=== PATIENT | female | born 1960 | race Asian ===

== ENCOUNTER 2016-11-25 08:56 | Day surgery (SDC) | payer MEDICAID ==
[2016-11-24 12:33] VITALS: BMI 22.0
[~2016-11-25] VITALS: Ht 167.6 cm; Wt 60.6 kg
[2016-11-25] VITALS (16 sets, daily range): BP systolic 108–154; BP diastolic 58–81; PULSE 70–87; RESP 11–20; Ht 167.6 cm; Wt 60.6 kg
[~2016-11-25 08:56] MED LIST: DIPHENHYDRAMINE 50 MG INJ IV PRN; FENTAnyl 50 MCG/ML VIAL IV PRN; HYDROmorphONE (0.2 MG/ML) 10ML SYG IV PRN; MEPERIDINE 25 MG INJ IV PRN; METOCLOPRAMIDE 10 MG INJ IV PRN; ONDANSETRON 4 MG INJ IV PRN; OXYCODONE/ACETAMINOPHEN (5/325) TAB PO PRN; PROCHLORPERAZINE 10 MG INJ IV PRN
[2016-11-25] MEDS ORDERED: AMLO5TAB4 PO (09:55)
[2016-11-25] MEDS ORDERED: METO-429 PO (09:55)
[2016-11-25] MEDS ORDERED: SOD CHLORIDE 0.9% 1,000 ML IV ONE (10:00)
[2016-11-25] MEDS ORDERED: CEFAZOLIN 2 GM/50 ML (PMX) 50 ML IVPB ONE (10:00)
--- NOTE | 2016-11-25 10:16 | RADRPT ---
PROCEDURE: XR Chest 1 View. CLINICAL INDICATION: Abnormal breath sounds, preop. TECHNIQUE: AP view of the chest were obtained. COMPARISON: None. FINDINGS: The cardiomediastinal silhouette is within normal limits. The lungs are hyperexpanded. No consolidat ions are identified. No pneumothorax is seen. Osseous structures are intact. IMPRESSION: Hyperexpanded, clear lungs. RPTAT: AA .Tejinder Alonzo MD, MD Date Time Electronically viewed and signed by .Tejinder Alonzo MD, MD on 11/25/2016 10:16 .P/
[2016-11-25] MEDS ORDERED: FENTAnyl 50 MCG/ML VIAL ONE ×2 (12:15→12:47)
[2016-11-25] MEDS ORDERED: MIDAZOLAM 1 MG/ML 2 ML INJ ONE (12:15)
[2016-11-25] MEDS ORDERED: LIDOCAINE 2% (SDV) 5 ML INJ ONE (12:15)
[2016-11-25] MEDS ORDERED: PROPOFOL 20 ML ONE (12:15)
[2016-11-25 12:24] LABS: BASOPHILS % 0.1 % (0.0-2.0); EOSINOPHILS # 0.1 10^3/ul (0.0-0.5); EOSINOPHILS % 2.4 % (0.0-7.0); HEMATOCRIT 36.7 % (37.0-47.0); HEMOGLOBIN 11.5 g/dl (12.0-16.0); LYMPHOCYTES # 1.8 10^3/ul (0.8-2.9); LYMPHOCYTES % 30.1 % (15.0-51.0); MEAN CORPUSCULAR HEMOGLOBIN 22.8 pg (29.0-33.0); MEAN CORPUSCULAR HGB CONC 31.4 g/dl (32.0-37.0); MEAN CORPUSCULAR VOLUME 72.6 fl (82.0-101.0); MONOCYTE # 0.4 10^3/ul (0.3-0.9); MONOCYTES % 5.8 % (0.0-11.0); NEUTROPHIL # 3.7 10^3/ul (1.6-7.5); NEUTROPHILS % 61.6 % (39.0-77.0); PLATELET COUNT 213 10^3/UL (140-440); RED BLOOD COUNT 5.06 10^6/ul (4.20-5.40); RED CELL DISTRIBUTION WIDTH 15.1 % (11.5-14.5); UNCORRECTED WBC 6.1 10^3/ul (4.8-10.8); WHITE BLOOD COUNT 6.1 10^3/ul (4.8-10.8)
[2016-11-25] MEDS ORDERED: CEFAZOLIN 1 GM INJ ONE (12:24)
[2016-11-25 12:28] LABS: POTASSIUM 3.7 mmol/L (3.5-5.1)
[2016-11-25 12:29] LABS: CALCIUM 9.4 mg/dl (8.4-10.2); CREATININE 0.57 mg/dl (0.44-1.00)
[2016-11-25] MEDS ORDERED: ISOSULFAN BLUE 1% 5 ML INJ SC ONE (12:30)
[2016-11-25] MEDS ORDERED: METOCLOPRAMIDE 10 MG INJ ONE (12:30)
[2016-11-25] MEDS ORDERED: ONDANSETRON 4 MG INJ ONE (12:30)
[2016-11-25 12:36] LABS: CONDITION 1; LH ANALYZER COMMENTS 1
[2016-11-25 12:51] LABS: INR 0.94; PROTIME 12.6 Sec (12.2-14.2)
[2016-11-25 12:57] LABS: PARTIAL THROMBOPLASTIN TIME 40.8 Sec (25.0-35.0)
[2016-11-25] MEDS ORDERED: GLYCOPYRROLATE 0.4 MG INJ ONE (13:10)
[2016-11-25] MEDS ORDERED: EPHEDrine SULFATE 50 MG/5 ML SYG ONE (13:10)
[2016-11-25] MEDS ORDERED: LABETALOL HCL 20MG INJ IV PRN (13:30)
[2016-11-25] MEDS ORDERED: hydrALAzine 20 MG INJ IV PRN (13:30)
--- NOTE | 2016-11-25 13:37 | RADRPT ---
Vent Rate: 67 bpm RR Interval: 0 msec SC Interval: 148 msec QRS Duration: 78 msec QT Interval: 402 msec QTC Interval: 424 msec P-R-T [place]: 46 - 25 - 16 degrees Normal sinus rhythm Normal ECG Electronically Signed By: Vel Childress [id number]
[2016-11-25] MEDS ORDERED: KETOROLAC 30 MG INJ ONE (13:56)
--- NOTE | 2016-11-25 14:32 | OPR ---
DATE OF OPERATION: 11/25/2016 PREOPERATIVE DIAGNOSIS: Invasive cancer, left breast. POSTOPERATIVE DIAGNOSIS: Invasive cancer, left breast. PROCEDURE PERFORMED: Left partial mastectomy and axillary dissection utilizing sentinel lymph node technique. SURGEON: Toney Rivera MD VEST BASTER: Dr. Akins and Carlie Chand MD ANESTHESIA: General. ANESTHESIOLOGIST: Lee Ann Mitchell MD INDICATIONS FOR PROCEDURE: The patient is an unfortunate 56-year-old female who underwent surveilla nce mammography and was found to have a suspicious lesion greater than 2 cm in her left breast. Cor e biopsy confirmed an invasive cancer. She was not a candidate for neoadjuvant chemotherapy. She w as HER-2 negative. She was counseled as to the need for surgery. She consented and was scheduled f or surgery. DESCRIPTION OF PROCEDURE: The patient was brought to the operating theater, placed under general an esthesia. The left breast and axillary region was prepped and draped in the usual sterile fashion. Approximately 4 mL of 1% Lymphazurin blue dye was then injected peritumorally, the breast was gentl y massaged for approximately 12 minutes. Subsequently, a 3 cm incision was made in the left axillar y hairline. Subcutaneous tissue was dissected with cautery down through the clavipectoral fascia. A dye-stained lymphatic was traced and found to be going to a group of somewhat enlarged lymph nodes . Therefore, Dr. Rivera made decision to resect the sentinel node and additional lymph nodes. With blunt dissection along the chest wall, the long thoracic nerve was identified and kept out of harm's way. More superiorly, the axillary vein and thoracodorsal neurovascular bundle were identified and kept out of harm's way. Node bearing tissue between the long thoracic nerve and thoracodorsal nerv e was meticulously harvested using LigaSure device and sent for intraoperative gross analysis perfor med by attending pathologist, Dr. Akins. He decided to defer to permanent. Therefore, Dr. Rivera i rritated the wound. Minimal bleeding was controlled with cautery. A #10 flat Rigo-Jones drain w as brought through the left midaxillary line, cut to size, laid within the axilla. It was secured i n place with a 2-0 nylon suture in the standard fashion. The skin incision was reapproximated with 4-0 Vicryl suture in a subcuticular fashion. Attention was then directed towards performing partial mastectomy. A periareolar incision was made from the 9 o'clock through the 12 o'clock to the 3 o'clock location. Subcutaneous tissue was dissec benji with cautery. The skin edges were elevated with skin hooks. Wide circumferential dissection of the tissue associated with the mass then took place. Specimen was elevated, transected, sent for g ross analysis. On gross analysis, however, a definite tumor was not found. Therefore, Dr. Rivera re turned to the room, reevaluated. There was additional firm tissue medially that was most likely rel ated to additional tumor. This tissue was resected using cautery. It was oriented and sent for per manent pathologic analysis. Final inspection revealed a small amount of additional tissue which was somewhat suspicious. It was resected and sent as the final medial margin. The wound was then irri gated. Minimal bleeding was controlled with cautery. The skin was reapproximated with a deep derma l layer of 4-0 Vicryl sutures, followed by final skin approximation with 5-0 PDS sutures in subcutic ular fashion. Benzoin and Steri-Strips were then applied to both incisions. The patient tolerated the procedure well. The estimated blood loss was 30 mL. There were no complications. The patient was transported in stable condition to the recovery room where a circumferential compression dressin g was applied. Dictated By: TONEY LEA/ADRIANA Conf#: [id number] DID#: [id number]
[2016-11-25] MEDS ORDERED: ACETAMINOPHEN 1000MG/100ML IV 100 ML IVPB PRN (15:00)
[2016-11-25] MEDS ORDERED: morphine 2 MG INJ IV PRN (15:00)
[2016-11-25] MEDS ORDERED: ONDANSETRON 4 MG INJ IV PRN (15:00)
[2016-11-25] MEDS: D5W-0.45 NACL + KCL 20 MEQ 1,000 ML IV SCH ×2 (17:35→23:18)
--- NOTE | 2016-11-25 18:19 | HP ---
DATE OF ADMISSION: 11/25/2016 CHIEF COMPLAINT AND HISTORY OF PRESENT ILLNESS: The patient is a 56-year-old female with history of hypertension who underwent surveillance mammography and was found to have suspicious lesion in the left breast. Subsequently, she underwent core biopsy which confirmed invasive cancer. The patient was not a candidate for neoadjuvant chemotherapy. She was HER2 negative. The patient was seen by Imtiaz Rivera as an outpatient, and she underwent left partial mastectomy and axillary dissection. The p atient postoperatively has significant chest wall pain, and therefore, the patient is being admitted for further evaluation and management. REVIEW OF SYSTEMS: The patient denied any history of headache, dizziness, syncope. No history of r ecent fever or chills. No history of abdominal pain. No history of vomiting or diarrhea. No histo ry of dysuria or hematuria. No history of focal weakness in the past. No history of cardiac diseas e other than hypertension. No history of diabetes. The rest of the review of systems is unremarkab le. PAST SURGICAL HISTORY: None. ALLERGIES: NONE. SOCIAL HISTORY: No smoking, no alcohol. FAMILY HISTORY: Noncontributory. PHYSICAL EXAMINATION: GENERAL: The patient is conscious, awake, alert, fairly oriented. VITAL SIGNS: Blood pressure 153/76, pulse 72, respiration 20, temperature 98.2. HEENT: Atraumatic, normocephalic. Conjunctivae and lids normal. Oropharynx clear. NECK: Supple. No mass, no thyromegaly. CHEST: Fairly clear. No use of accessory muscles. CARDIOVASCULAR: S1, S2 normal. No murmur, gallop, or rub. ABDOMEN: Soft, nondistended, nontender. No palpable mass. EXTREMITIES: No leg edema. Pedal pulses palpable. SKIN: Without acute rash or ulcer. NEUROLOGIC: The patient is awake, alert, oriented with no gross focal deficit. LABORATORY DATA: This morning, WBC 6.1, hemoglobin 11.5, platelets 213. Sodium 145, potassium 3.7, BUN 13, creatinine 0.5, glucose 96, calcium 9.4. MEDICATIONS PRIOR TO ADMISSION: The patient was on 1. Norvasc 5 mg b.i.d. 2. Metoprolol 50 b.i.d. IMPRESSION: 1. Left breast cancer status post left partial mastectomy and axillary dissection. 2. Hypertension. PLAN: The patient admitted on medical floor. The patient will be started on clear liquid diet [facility] will be advanced as tolerated. I will resume her antihypertensive medications. The patient will have SCD for DVT prophylaxis and will be given Tylenol, Percocet, and IV morphine for pain control, depending upon the severity of the pain. Plan of care discussed with the patient's daughter. Further recommendations depend on patient's hos pital course. Dictated By: SELMA AVILA/ADRIANA Conf#: [id number] DID#: [id number]
[2016-11-25] MEDS: AMLODIPINE 5 MG TAB PO SCH (21:00)
[2016-11-25] MEDS: METOPROLOL 50 MG TAB PO SCH (21:00)
[2016-11-26] MEDS: D5W-0.45 NACL + KCL 20 MEQ 1,000 ML IV SCH ×2 (07:00→14:35)
[2016-11-26 08:01] VITALS: BP 132/75; RESP 16
[2016-11-26] MEDS: AMLODIPINE 5 MG TAB PO SCH (08:53)
[2016-11-26] MEDS: METOPROLOL 50 MG TAB PO SCH (08:53)
--- NOTE | 2016-11-26 09:59 | PN ---
Date/Time of Note Date/Time of Note DATE: 11/26/16 TIME: 09:58 Assessment/Plan VTE Prophylaxis VTE Prophylaxis Intervention: other Lines/Catheters IV Catheter Type (from Nrsg): Peripheral IV Assessment/Plan Chief Complaint/Hosp Course 1) breast cancer - s/p mastectomy - discharge per surgery Problems: Subjective 24 Hr Interval Summary Free Text/Dictation Patient currently denies any pain Exam/Review of Systems Vital Signs Vitals Vital Signs Date Time Temp Pulse Resp B/P Pulse Ox O2 Delivery O2 Flow Rate FiO2 11/26/16 08:01 98.6 90 16 132/75 96 11/25/16 17:45 Room Air 11/25/16 14:50 6.0 Intake and Output 11/25/16 11/25/16 11/26/16 15:00 23:00 07:00 Intake Total 850 ml 500 ml Output Total 30 ml 10 ml 905 ml Balance 820 ml -10 ml -405 ml Exam Constitutional: well developed Head: atraumatic, normocephalic Neck: supple Respiratory: clear to auscultation Cardiovascular: regular rate and rhythm Gastrointestinal: non-tender, soft Results Result Diagram: 11/25/1640 11/25/1640 Medications Medications Current Medications Ondansetron HCl 4 mg 4 mg Q6H PRN IV NAUSEA AND/OR VOMITING; Start 11/25/16 at 15:00 Potassium Chloride/Dextrose/ Sod Cl (D5-1/2ns + KCl 20 Meq) 1,000 ml @ 125 mls/ hr Q8H IV Last administered on 11/26/16 07:00; Admin Dose 125 MLS/HR; Start at 14:35 Morphine Sulfate 2 mg 2 mg Q1H PRN IV PAIN; Start 11/25/16 at 15:00 Acetaminophen (Ofirmev 1000mg/ 100ml Iv) 100 ml @ 400 mls/hr Q6H PRN IVPB PAIN Last administered on 11/25/16 18:21; Admin Dose 400 MLS/HR; Start at 15:00 Amlodipine Besylate (Norvasc) 5 mg BID PO Last administered on 11/26/16 08:53 ; Admin Dose 5 MG; Start 11/25/16 at 21:00 Metoprolol Tartrate (Lopressor) 50 mg BID PO Last administered on 11/26/16 08: 53; Admin Dose 50 MG; Start 11/25/16 at 21:00 CHARBEL DOMINGUEZ Nov 26, 2016 09:59
[2016-11-26] MEDS ORDERED: HYDR-906 PO (14:34)
--- NOTE | 2016-11-26 14:38 | PN ---
DATE: 11/26/2016 Postoperative day #1. SUBJECTIVE: She does not have any complaints. OBJECTIVE: VITAL SIGNS: Stable. 98.6, 90, 16,132/75, 96% on room air. The Rigo-Jones drain has been draining serosanguineous fluid, 20 mL for 24 hours. ABDOMEN: Soft. HEART: Regular rhythm. EXTREMITIES: There is no calf tenderness. ASSESSMENT: A 56-year-old patient, status post partial mastectomy with sentinel lymph node dissection on the left side. Today is postop day #1. The patient is stable. The left arm and upper extremity has full range of motion. PLAN: The patient can go home today and follow up by Dr. Rivera in his office this coming Monday. Dictated By: HAI GREEN MD PS/NTS Conf#: [id number] DID#: [id number] MTDD
== END 2016-11-26 16:25 | disposition home or self-care (01) ==
LOC: SDS 08:56 → MS1 16:20 → SDS 11-26 16:25
PROVIDERS: ATTEND Surgery Surgical Oncology
DX: D05.12 Intraductal carcinoma in situ of left breast (principal); I25.10 Atherosclerotic heart disease of native coronary artery without angina pectoris; I10 Essential (primary) hypertension
CPT/HCPCS: 19301; 38500; 38792; 71010; 80048; 85025; 85610; 85730; 88307; 93005; J0131; J0360; J0690; J1885; J2250; J2270; J2405; J2765; J3010; J3480; Z7512; Z7610; Q9968

== ENCOUNTER 2016-12-16 08:44 | Day surgery (SDC) | payer MEDICAID ==
[~2016-12-16] VITALS: Ht 165.1 cm; Wt 61.3 kg
[2016-12-16] VITALS (9 sets, daily range): BP systolic 112–187; BP diastolic 66–92; PULSE 64–82; RESP 15–20; Ht 165.1 cm; Wt 61.3 kg
[~2016-12-16 08:44] MED LIST changes: +AMLO5TAB4 PO; +CEFAZOLIN 2 GM/50 ML (PMX) 50 ML IVPB SCH; -DIPHENHYDRAMINE 50 MG INJ IV PRN; -FENTAnyl 50 MCG/ML VIAL IV PRN; +HYDR-906 PO; -HYDROmorphONE (0.2 MG/ML) 10ML SYG IV PRN; -MEPERIDINE 25 MG INJ IV PRN; +METO-429 PO; -METOCLOPRAMIDE 10 MG INJ IV PRN; -ONDANSETRON 4 MG INJ IV PRN; -OXYCODONE/ACETAMINOPHEN (5/325) TAB PO PRN; -PROCHLORPERAZINE 10 MG INJ IV PRN; +SOD CHLORIDE 0.9% 1,000 ML IV SCH
[2016-12-16 10:39] LABS: ADD SCAN DIFF NO
[2016-12-16 10:47] LABS: BASOPHILS % 0.5 % (0.0-2.0); EOSINOPHILS # 0.1 10^3/ul (0.0-0.5); HEMATOCRIT 33.8 % (37.0-47.0); HEMOGLOBIN 10.4 g/dl (12.0-16.0); LYMPHOCYTES # 1.7 10^3/ul (0.8-2.9); LYMPHOCYTES % 38.1 % (15.0-51.0); MEAN CORPUSCULAR HEMOGLOBIN 22.4 pg (29.0-33.0); MEAN CORPUSCULAR HGB CONC 30.8 g/dl (32.0-37.0); MEAN CORPUSCULAR VOLUME 72.7 fl (82.0-101.0); MONOCYTE # 0.4 10^3/ul (0.3-0.9); MONOCYTES % 9.1 % (0.0-11.0); NEUTROPHIL # 2.2 10^3/ul (1.6-7.5); NEUTROPHILS % 49.1 % (39.0-77.0); PLATELET COUNT 239 10^3/UL (140-415); RED BLOOD COUNT 4.65 10^6/ul (4.20-5.40); RED CELL DISTRIBUTION WIDTH 15.4 % (11.5-14.5); WHITE BLOOD COUNT 4.4 10^3/ul (4.8-10.8)
[2016-12-16] MEDS ORDERED: NITR0.4T6 SL (10:47)
[2016-12-16] MEDS ORDERED: ATOR40TA68 PO (10:47)
[2016-12-16] MEDS ORDERED: ASPI81TA3 PO (10:47)
[2016-12-16 10:55] LABS: INR 0.96; PROTIME 12.8 Sec (12.2-14.2)
[2016-12-16 11:03] LABS: CALCIUM 9.3 mg/dl (8.4-10.2); CREATININE 0.58 mg/dl (0.44-1.00); POTASSIUM 3.7 mmol/L (3.5-5.1)
[2016-12-16] MEDS ORDERED: PROPOFOL 20 ML ONE (11:12)
[2016-12-16] MEDS ORDERED: LIDOCAINE 2% (SDV) 5 ML INJ ONE (11:12)
[2016-12-16] MEDS ORDERED: FENTAnyl 50 MCG/ML VIAL ONE (11:12)
[2016-12-16] MEDS ORDERED: CEFAZOLIN 1 GM INJ ONE (11:12)
[2016-12-16] MEDS ORDERED: MIDAZOLAM 1 MG/ML 2 ML INJ ONE (11:12)
[2016-12-16] MEDS ORDERED: METOPROLOL 5 MG INJ ONE (11:56)
[2016-12-16 11:59] LABS: PARTIAL THROMBOPLASTIN TIME 37.5 Sec (25.0-35.0)
[2016-12-16] MEDS ORDERED: ONDANSETRON 4 MG INJ ONE (12:00)
[2016-12-16] MEDS ORDERED: METOCLOPRAMIDE 10 MG INJ ONE (12:00)
[2016-12-16] MEDS ORDERED: DEXAMETHASONE 4 MG/ML 1 ML INJ ONE (12:00)
[2016-12-16] MEDS ORDERED: HYDROmorphONE 2 MG/ML SYG ONE (12:20)
[2016-12-16] MEDS ORDERED: ONDANSETRON 4 MG INJ IV PRN ×2 (12:30→13:30)
[2016-12-16] MEDS ORDERED: OXYCODONE/ACETAMINOPHEN (5/325) TAB PO PRN ×2 (12:30)
[2016-12-16] MEDS ORDERED: MEPERIDINE 25 MG INJ IV PRN (12:30)
[2016-12-16] MEDS ORDERED: FENTAnyl 50 MCG/ML VIAL IV PRN (12:30)
[2016-12-16] MEDS ORDERED: KETOROLAC 30 MG INJ IV ONE (12:30)
[2016-12-16] MEDS ORDERED: hydrALAzine 20 MG INJ IV PRN (12:30)
[2016-12-16] MEDS ORDERED: METOCLOPRAMIDE 10 MG INJ IV PRN (12:30)
[2016-12-16] MEDS ORDERED: HYDROmorphONE (0.2 MG/ML) 10ML SYG IV PRN ×2 (12:30)
[2016-12-16] MEDS ORDERED: DIPHENHYDRAMINE 50 MG INJ IV PRN (12:30)
[2016-12-16] MEDS ORDERED: LABETALOL HCL 20MG INJ IV PRN (12:30)
[2016-12-16] MEDS ORDERED: PROCHLORPERAZINE 10 MG INJ IV PRN (12:30)
[2016-12-16] MEDS ORDERED: KETOROLAC 30 MG INJ ONE (13:10)
--- NOTE | 2016-12-16 13:13 | RADRPT ---
PROCEDURE: XR Chest. CLINICAL INDICATION: Preoperative chest TECHNIQUE: Chest AP portable. COMPARISON: No comparison available. FINDINGS: The mediastinal structures are unremarkable. The heart is normal in size and configuration. The pu lmonary vascularity is normal. The lung sheriff are unremarkable. No consolidation is identified. The pleural spaces are unremarkable. The axial skeleton is unremarkable. IMPRESSION: No active intrathoracic disease. RPTAT: HGDB .Nura Hansen MD, MD Date Time Electronically viewed and signed by .Nura Hansen MD, MD on 12/16/2016 13:13 .B/
[2016-12-16] MEDS ORDERED: morphine 2 MG INJ IV PRN (13:30)
[2016-12-16] MEDS ORDERED: ACETAMINOPHEN 1000MG/100ML IV 100 ML IVPB PRN (13:30)
--- NOTE | 2016-12-16 13:50 | OPR ---
DATE OF OPERATION: 12/16/2016 PREOPERATIVE DIAGNOSIS: Invasive cancer, left breast, need for completion mastectomy. POSTOPERATIVE DIAGNOSIS: Invasive cancer, left breast, need for completion mastectomy. OPERATION PERFORMED: Left completion mastectomy. ANESTHESIA: General. ANESTHESIOLOGIST: Lee Ann Mitchell MD SURGEON: Toney Rivera MD STOCKROOM INVENTORY CLERK: Dr. Skinner and Dr. Chand INDICATIONS FOR PROCEDURE: The patient is an unfortunate 56-year-old female who was diagnosed with an invasive cancer of her left breast. She underwent previous partial mastectomy and axillary disse ction. However, on final pathology, she had positive margins, and she was counseled as to the need for reexcision. She was not interested in reexcision, she requested a left completion mastectomy. She consented and was scheduled for surgery. DESCRIPTION OF PROCEDURE: The patient was brought to the operating theater, placed under general en dotracheal tube anesthesia. The left breast and axillary region were prepped and draped in usual st erile fashion. Planned elliptical incision was demarcated including the skin and nipple areolar com plex. The incision was carried out with 15 blade scalpel. Subcutaneous tissue was dissected with c autery. [place] clamps were used to elevate the skin edges and skin flaps were created with cau jaciel sequentially, first to the clavicle superiorly, medially to the sternal border, inferiorly to t he inframammary fold, and laterally to the latissimus dorsi muscle had been identified throughout it s course. Mastectomy then took place from medial to lateral using cautery. At the border of the pe ctoralis major muscle, the pectoralis minor muscle was identified, a clavipectoral fascia was incise d. Dissection continued along the chest wall until the axillary region was reached. Previous serom a cavity was identified and also partially resected. Specimen was transected, oriented, sent for [facility] pathologic analysis. The wound was irrigated. Minimal bleeding was controlled with cautery . Two #10 Rigo-Jones drains were then brought through the left mid axillary line, one was cut to size and laid within the axilla, the other was laid over the pectoralis major muscle. Both drains were secured in place with 2-0 nylon sutures. Towel clamps were then utilized to reapproximate the skin, and the skin was then sutured with a deep dermal layer of interrupted 4-0 Vicryl sutures, foll owed by final skin approximation with 5-0 PDS sutures in subcuticular fashion. Benzoin and Steri-St rips were then applied. The patient tolerated the procedure well. The estimated blood loss was 200 mL. There were no complications. The patient was transported in stable condition to the recovery room where circumferential compression dressing was applied. Dictated By: TONEY LEA/ADRIANA Conf#: [id number] DID#: [id number]
[2016-12-16] MEDS ORDERED: HYDROCODONE/APAP (5/325) TAB PO PRN (14:30)
--- NOTE | 2016-12-16 14:46 | RADRPT ---
Vent Rate: 68 bpm RR Interval: 0 msec [place] Interval: 170 msec QRS Duration: 82 msec QT Interval: 396 msec QTC Interval: 421 msec P-R-T [place]: 50 - 26 - 34 degrees Normal sinus rhythm Septal infarct , age undetermined Abnormal ECG Electronically Signed By: Jose Elias Garza [id number]
--- NOTE | 2016-12-16 16:30 | HP ---
DATE OF ADMISSION: 12/16/2016 CHIEF COMPLAINT AND HISTORY OF PRESENT ILLNESS: The patient is a 48-year-old female well known to anat forbes from previous admissions. The patient has history of hypertension, who recently underwent surveil louise mammography and was found to have left breast abnormal lesion, which was subsequently biopsied and the patient was diagnosed with invasive cancer. The patient underwent left partial mastectomy and axillary dissection back in 11/2016. The patient was brought into the hospital today for left c ompletion mastectomy. The patient has invasive cancer of the left breast, the patient's margins wer e positive after her partial mastectomy. Therefore, the patient had to undergo left completion mast ectomy. The patient does have postoperative pain. No reported fever or chills. No reported shortn ess of breath. No reported headache. No reported recent vomiting or diarrhea. No reported dysuria or hematuria. No focal weakness. REVIEW OF SYSTEMS: Rest of the review of systems was unremarkable. PAST MEDICAL HISTORY: As stated above. No previous history of CHF, CVA or coronary artery disease. No history of diabetes. PAST SURGICAL HISTORY: As stated above. ALLERGIES: NONE. SOCIAL HISTORY: No smoking, no alcohol. FAMILY HISTORY: Noncontributory. PHYSICAL EXAMINATION: GENERAL: The patient appears to be slightly sleepy, easily arousable. VITAL SIGNS: Temperature 98.2, pulse 65, respirations 18, blood pressure 147/74, O2 saturation 99%. HEENT: Atraumatic, normocephalic. Conjunctivae and lids normal. Oropharynx clear. NECK: Supple. No mass or thyromegaly. LUNGS: Clear to auscultation. CARDIOVASCULAR: S1, S2 normal. No murmur, gallop, or rub. ABDOMEN: Soft, nondistended, nontender. Bowel sounds present. EXTREMITIES: No leg edema. NEUROLOGIC: The patient is sleepy, but easily arousable and follows simple commands signs. LABORATORY DATA: Today, WBC 4.4, hemoglobin 10.4, platelets 239. Sodium 142, potassium 3.7, BUN 13 , creatinine 0.5, glucose 96, calcium 9.6. IMPRESSION: 1. Left breast invasive cancer, status post initially left partial mastectomy but due to positive m argins, patient underwent left completion mastectomy today. 2. Hypertension. PLAN: The patient admitted on medical floor. The patient will be started on a clear liquid diet, w hich will be advanced as tolerated. The patient will be given IV fluids and IV morphine for pain co ntrol. In addition, the patient will be given Tylenol for mild pain or fever. Will have SCDs for D VT prophylaxis. We will continue Norvasc, aspirin, Lipitor as at home. In addition, the patient wi ll be continued on metoprolol also. We will continue to follow from a medical standpoint. Dictated By: SELMA AVILA/ADRIANA Conf#: [id number] DID#: [id number]
[2016-12-16] MEDS: D5W-0.45 NACL + KCL 20 MEQ 1,000 ML IV SCH ×3 (19:15→23:02)
[2016-12-16] MEDS ORDERED: ATORVASTATIN 40 MG TAB PO SCH (21:00)
[2016-12-16] MEDS: METOPROLOL 50 MG TAB PO SCH (21:07)
[2016-12-17 04:20] VITALS: BP 148/72; PULSE 89; RESP 16
[2016-12-17] MEDS: D5W-0.45 NACL + KCL 20 MEQ 1,000 ML IV SCH ×2 (05:02→06:50)
[2016-12-17 08:17] VITALS: BP 133/77; PULSE 75; RESP 17
[2016-12-17] MEDS: METOPROLOL 50 MG TAB PO SCH (08:18)
[2016-12-17] MEDS ORDERED: ASPIRIN 81 MG TAB PO SCH (09:00)
[2016-12-17] MEDS ORDERED: AMLODIPINE 10 MG TAB PO SCH (09:00)
--- NOTE | 2016-12-17 14:51 | DS ---
Date/Time of Note Date/Time of Note DATE: 12/17/16 TIME: 14:51 Discharge Summary Admission/Discharge Info Admit Date/Time Discharge Date/Time Patient Condition: Stable Home Meds Reported Medications Nitroglycerin* (Nitroglycerin* SL) 0.4 Mg Tab.subl, 0.4 MG SL Q5MIN Y for CHEST PAIN, BOTTLE 12/16/16 Atorvastatin* (Atorvastatin*) 40 Mg Tablet, 40 MG PO QHS, #30 TAB 12/16/16 Aspirin* (Aspirin* Chew) 81 Mg Tab.chew, 81 MG PO DAILY, TAB.CHEW 12/16/16 Hydrocodone/Acetaminophen ([place] 5-325 Tablet) 1 Each Tablet, 1 EACH PO Q6, TAB 11/26/16 Metoprolol Tartrate* (Lopressor*) 50 Mg Tab, 50 MG PO BID, #60 TAB 11/25/16 Amlodipine Besylate* (Norvasc*) 5 Mg Tablet, 10 MG PO DAILY, TAB 11/25/16 Follow-up Plan FU with primary MD X 1 WEEK FU with surgeon as recommended. Call 911 or go to the nearest hospital if symptoms worsen- patient verbalized understanding discharge instructions RAKEL BISHOP Dec 17, 2016 14:51
--- NOTE | 2016-12-17 14:54 | PDOCDIS ---
Discharge Instructions HOME CARE INSTRUCTIONS: Diet Instructions: RegularSpecial Diet: REGULAR ACTIVITY: Activity Restrictions: Slowly Increase Activity Rest between Activity Avoid heavy lifting Avoid Heavy Housework Activity Restrictions Comment: Avoid getting surgical incision wet at all times FOLLOW UP/APPOINTMENTS Appointments FU with primary MD X 1 WEEK FU with surgeon as recommended. Call 911 or go to the nearest hospital if symptoms worsen- patient verbalized understanding discharge instructions RAKEL BISHOP Dec 17, 2016 14:54
--- NOTE | 2016-12-17 15:05 | PN ---
DATE: 12/17/2016 SUBJECTIVE: Feels okay. No specific complaints OBJECTIVE: VITAL SIGNS: Stable. Temperature 98.2, heart rate is 75, respirations 17, blood pressure 133/77, s aturation 97% on room air. The patient has had left completion mastectomy because of the invasive cancer on the left side. Devon kson-Jones drain is draining serosanguineous fluid. ABDOMEN: Soft. EXTREMITIES: Legs, no calf tenderness. ASSESSMENT AND PLAN: Postop day #1, complete mastectomy on the left side. The patient feels fine with stable vital signs . PLAN: To be discharged home with Rigo-Jones drain in place and the nurses are going to teach the patient the care of the Rigo-Jones drains. Patient to call Dr. Rivera' office on Monday and make an appointment for followup. Dictated By: HAI GREEN MD PS/NTS Conf#: [id number] DID#: [id number]
[2016-12-17] MEDS ORDERED: HYDR-906 PO (15:18)
[2016-12-17] MEDS ORDERED: PANT40TA3 PO (15:18)
[2016-12-17] MEDS ORDERED: DOCU-144 PO (15:18)
--- NOTE | 2016-12-17 15:25 | DS ---
Date/Time of Note Date/Time of Note DATE: 12/17/16 TIME: 15:19 Discharge Summary Admission/Discharge Info Admit Date/Time Discharge Date/Time Patient Condition: Stable Home Meds Active Scripts Hydrocodone/Acetaminophen ([place] 5-325 Tablet) 1 Each Tablet, 1 EACH PO Q6, #14 TAB Prov:RAKEL BISHOP 12/17/16 Pantoprazole* (Protonix*) 40 Mg Tablet.dr, 40 MG PO DAILY, #20 TAB Prov:RAKEL BISHOP 12/17/16 Docusate Sodium* (Colace*) 100 Mg Capsule, 100 MG PO BID, #30 CAP Prov:RAKEL BISHOP 12/17/16 Reported Medications Nitroglycerin* (Nitroglycerin* SL) 0.4 Mg Tab.subl, 0.4 MG SL Q5MIN Y for CHEST PAIN, BOTTLE 12/16/16 Atorvastatin* (Atorvastatin*) 40 Mg Tablet, 40 MG PO QHS, #30 TAB 12/16/16 Aspirin* (Aspirin* Chew) 81 Mg Tab.chew, 81 MG PO DAILY, TAB.CHEW 12/16/16 Hydrocodone/Acetaminophen ([place] 5-325 Tablet) 1 Each Tablet, 1 EACH PO Q6, TAB 11/26/16 Metoprolol Tartrate* (Lopressor*) 50 Mg Tab, 50 MG PO BID, #60 TAB 11/25/16 Amlodipine Besylate* (Norvasc*) 5 Mg Tablet, 10 MG PO DAILY, TAB 11/25/16 RAKEL BISHOP Dec 17, 2016 15:24
== END 2016-12-17 16:15 | disposition home or self-care (01) ==
LOC: SDS 08:44 → MS1 16:45 → SDS 12-17 16:15
PROVIDERS: ATTEND Surgery Surgical Oncology
DX: D05.12 Intraductal carcinoma in situ of left breast (principal); N60.12 Diffuse cystic mastopathy of left breast; I10 Essential (primary) hypertension
CPT/HCPCS: 19303; 71010; 80048; 85025; 85610; 85730; 88309; 93005; J0131; J0690; J1100; J1170; J1885; J2250; J2405; J2765; J3010; J3480; Z7512; Z7610